=== PATIENT | male | born 1970 | race Caucasian/White ===

== ENCOUNTER 2016-09-29 10:48 | Day surgery (SDC) | payer OTHER ==
[~2016-09-29] VITALS: Ht 177.8 cm; Wt 98.6 kg
[2016-09-29] MEDS ORDERED: BUPR-86 PO (11:24)
[2016-09-29] MEDS ORDERED: METO-99 PO (11:24)
[2016-09-29] MEDS ORDERED: TAMS-11 PO (11:24)
[2016-09-29 11:25] VITALS: BP 139/91
[2016-09-29] MEDS ORDERED: LACTATED RINGERS 1,000 ML IV SCH (11:25)
[2016-09-29] MEDS ORDERED: MIDAZOLAM 1 MG/ML, 2ML ONE (16:50)
[2016-09-29] MEDS ORDERED: FENTANYL PF 250 MCG/5ML ONE (16:50)
[2016-09-29] MEDS ORDERED: DEXAMETHASONE 4 MG/ML, 1ML ONE (16:58)
[2016-09-29] MEDS ORDERED: PROPOFOL 10 MG/ML, 20ML ONE (16:58)
[2016-09-29] MEDS ORDERED: KETAMINE 100 MG/ML, 5ML ONE (16:58)
[2016-09-29] MEDS ORDERED: SUCCINYLCHOLINE 20 MG/ML, 10ML ONE (16:58)
[2016-09-29] MEDS ORDERED: LABETALOL 5MG/ML, 20ML ONE (17:50)
[2016-09-29] MEDS ORDERED: LABETALOL 5MG/ML, 20ML IV PRN (18:00)
[2016-09-29] MEDS ORDERED: PROMETHAZINE 25 MG/ML, 1ML IV PRN (18:00)
[2016-09-29] MEDS ORDERED: hydrALAzine 20 MG/ML, 1ML IV PRN (18:00)
[2016-09-29] MEDS ORDERED: MIDAZOLAM 1 MG/ML, 2ML IV PRN (18:00)
[2016-09-29] MEDS ORDERED: ACETAMINOPHEN 325 MG TABLET PO PRN (18:00)
[2016-09-29] MEDS ORDERED: HYDROmorphone 1 MG/ML, 1ML IV PRN (18:00)
[2016-09-29] MEDS ORDERED: OXYcodone/APAP 5/325MG TABLET PO PRN (18:00)
[2016-09-29] MEDS ORDERED: OXYcodone 5 MG/5 ML ORAL.SOL UDC PO PRN (18:00)
[2016-09-29] MEDS ORDERED: FENTANYL PF 100 MCG/2ML IV PRN (18:00)
[2016-09-29] MEDS ORDERED: MEPERIDINE/PF 25MG/0.5ML IVPush PRN (18:00)
[2016-09-29] MEDS ORDERED: ALBUTEROL SULFATE 2.5 MG/3 ML NPPB PRN (18:00)
[2016-09-29] MEDS ORDERED: ONDANSETRON 2MG/ML, 2ML IVPush PRN (18:00)
[2016-09-29] MEDS ORDERED: KETOROLAC 30 MG/1 ML IV PRN (18:00)
[2016-09-29] MEDS ORDERED: ONDANSETRON 2MG/ML, 2ML ONE (18:58)
[2016-09-29] MEDS ORDERED: ONDANSETRON 2MG/ML, 2ML IVPush ONE (19:00)
== END 2016-09-29 20:06 | disposition home or self-care (01) ==
LOC: OUT 10:48
PROVIDERS: ATTEND Urology
DX: N20.1 Calculus of ureter (principal)
CPT/HCPCS: 52353; 74000; 76000; 81001; 82360; 87086; 88300; C1769; J0330; J1100; J2250; J2405; J2704; J3010; J7120